=== PATIENT | male | born 1975 | race Caucasian/White ===

== ENCOUNTER 2020-06-16 22:45 | Emergency (ER) | payer OTHER ==
[2020-06-16 22:48] VITALS: BMI 24.8
[2020-06-16] MEDS ORDERED: predniSONE 20 MG TABLET (UD) PO ONE (22:53)
[2020-06-16] MEDS ORDERED: predniSONE 20 MG TABLET (UD) ONE (22:56)
[2020-06-16] MEDS ORDERED: diphenhydrAMINE HCL 50 MG CAPSULE ONE (22:56)
[2020-06-16 22:59] VITALS: BP 128/87; PULSE 72; TEMP 97.7
[2020-06-16] MEDS ORDERED: diphenhydrAMINE HCL 50 MG CAPSULE PO ONE (23:07)
== END 2020-06-16 23:39 | disposition home or self-care (01) ==
LOC: FER 22:45
PROC: 3E033NZ Introduction of Analgesics, Hypnotics, Sedatives into Peripheral Vein, Percutaneous Approach (ICD-10-PCS; principal; 2020-06-16)
DX: T78.40XA Allergy, unspecified, initial encounter (principal)
CPT/HCPCS: 99284-25

== ENCOUNTER 2021-04-25 13:52 | Emergency (ER) | payer OTHER ==
[2021-04-25] MEDS ORDERED: ACETAMINOPHEN 325 MG TABLET (FP) PO ONE (14:12)
[2021-04-25] MEDS ORDERED: KETOROLAC TROMETHAMINE 60 MG/2 ML VIAL IM ONE (14:12)
[2021-04-25] MEDS ORDERED: LIDOCAINE 5% TOPICAL PATCH TP ONE (14:13)
[2021-04-25 14:31] VITALS: BP 114/65; PULSE 70; TEMP 98.7; BMI 25.7
[2021-04-25] MEDS ORDERED: LIDOCAINE 5% TOPICAL PATCH ONE (14:33)
[2021-04-25] MEDS ORDERED: ACETAMINOPHEN 325 MG TABLET (FP) ONE (14:33)
[2021-04-25] MEDS ORDERED: KETOROLAC TROMETHAMINE 30 MG/1 ML VIAL ONE (14:33)
[2021-04-25] MEDS ORDERED: METHOCARBAMOL 500 MG TABLET PO ONE (15:15)
[2021-04-25] MEDS ORDERED: METHOCARBAMOL 500 MG TABLET ONE (15:32)
[2021-04-25] MEDS ORDERED: LIDOCAINE PATCH REMOVAL MC SCH (22:00)
== END 2021-04-25 16:27 | disposition home or self-care (01) ==
LOC: FER 13:52
PROC: 3E0233Z Introduction of Anti-inflammatory into Muscle, Percutaneous Approach (ICD-10-PCS; principal; 2021-04-25)
DX: M54.42 Lumbago with sciatica, left side (principal)
CPT/HCPCS: 72100-TC-FY; 99284-25

== ENCOUNTER 2021-04-27 09:15 | Emergency (ER) | payer OTHER ==
[2021-04-27 09:29] VITALS: BP 118/73; PULSE 60; TEMP 97.5; BMI 25.5
[2021-04-27] MEDS ORDERED: LIDOCAINE 5% TOPICAL PATCH TP ONE (09:40)
[2021-04-27] MEDS ORDERED: NAPROXEN 500 MG TABLET PO ONE (09:40)
[2021-04-27] MEDS ORDERED: NAPROXEN 500 MG TABLET ONE (09:42)
[2021-04-27] MEDS ORDERED: LIDOCAINE 5% TOPICAL PATCH ONE (09:43)
[2021-04-27] MEDS ORDERED: LIDOCAINE PATCH REMOVAL MC SCH (22:00)
== END 2021-04-27 10:13 | disposition home or self-care (01) ==
LOC: FER 09:15
DX: M54.42 Lumbago with sciatica, left side (principal)
CPT/HCPCS: 99283-25